=== PATIENT | female | born 1940 | race Caucasian/White ===

== ENCOUNTER 2017-04-07 08:47 | Inpatient (IN) ==
[2017-04-07] MEDS ORDERED: SODIUM CHLORIDE 0.9% 1,000 ML IV STA (10:27)
[2017-04-07] MEDS ORDERED: ONDANSETRON 4 MG/2 ML VIAL IV STA ×2 (10:28→12:01)
[2017-04-07 11:15] LABS: Apearance,Urine CLEAR (Clear); Bilirubin,Urine Negative (Negative); Blood, Urine Negative (Negative); Glucose,Urine (UA) >=500 mg/dL (Negative); Ketones,Urine 80 mg/dL (Negative); Mucus,Urine Occasional /LPF (Occasional); Nitrite,Urine Negative (Negative); Protein,Urine Negative; RBC,Urine 3 /HPF (0-4); Squamous Epithelial Cell,Urine Occasional /HPF (0-10); Urine Color Yellow (Yellow); Urine Specific Gravity 1.015 (1.001-1.035); Urine Urobilinogen < 2.0 EU/DL (0.2-1.0); WBC,Urine 6 /HPF (0-6)
[2017-04-07] MEDS ORDERED: ONDANSETRON ODT 4 MG TABLET PO STA (11:22)
[2017-04-07] MEDS ORDERED: ONDANSETRON ODT 4 MG TABLET PO ONE (11:24)
[2017-04-07 11:26] LABS: Basophils % 0.2 % (0.0-0.8); Eosinophils % 0.1 % (0.00-10.9); Hematocrit 36.4 VOL% (35.7-47.0); Hemoglobin 12.6 GM/DL (12.0-16.0); Immature Granulocytes % 0.4 %; Immature Granulocytes Absolute 0.06 #; Lymphocytes # 1.5 10*3/uL (1.4-4.0); Mean Corpuscular HGB Conc 34.6 GM/DL (32-36); Mean Corpuscular Hemoglobin 32 PG (27-34); Mean Corpuscular Volume 91.7 FL (87-102); Mean Platelet Volume 11.2 FL (9.6-12.0); Monocytes # 0.8 10*3/uL (0.11-0.8); Monocytes % 5.7 % (1.7-12.7); Neutrophils # 12.3 10*3/uL (1.4-7.4); Neutrophils % 83.6 % (38.7-73.9); Platelet Count 217 T/CUMM (130-400); Red Blood Count 3.97 MC/CUMM (3.8-5.5); Red Cell Distribution Width 13.8 % (9.3-17.3); White Blood Count 14.7 T/CUMM (4-12)
[2017-04-07 11:55] LABS: Albumin 3.9 G/DL (3.4-5.0); Bilirubin,Total 0.4 MG/DL (0.2-1.0); Calcium 9.2 MG/DL (8.5-10.1); Osmolality,Calculated 280.7 MOS/KG (273-304); Potassium 3.6 MMOL/L (3.5-5.1); Total Protein 7.5 G/DL (6.4-8.3)
[2017-04-07] MEDS ORDERED: ONDANSETRON 4 MG/2 ML VIAL ONE (12:21)
--- NOTE | 2017-04-07 13:01 | CT Report ---
History: Diffuse abdominal pain, vomiting, leukocytosis Date: 04/07/2017 Study: CT abdomen and pelvis with IV contrast Comparison exam: November 19, 2011 CT abdomen and pelvis Technique: Spiral CT sections were obtained from the lung bases to the pubic symphysis following 100 mL Omnipaque [address] exam was performed using one or more of the following dose reduction techniques: Automated exposure control, adjustment of the mA and/or kV according to patient size, or use of iterative reconstruction technique. CT abdomen: The partially visualized lung bases are clear without confluent infiltrate to suggest pneumonia. There is mild platelike scar or subsegmental atelectasis in the left lower lobe. There is no pleural or pericardial effusion. There is moderate coronary artery calcification, with involvement of the left anterior descending coronary artery. There is mild diffuse fatty infiltration of the liver. There is a 12 mm water density cyst at the inferior margin of the lateral segment of the left lobe, unchanged dating back to 2011. There is abnormal wall thickening and wall edema associated with the gallbladder. There is some increased density in the lumen of the gallbladder suggesting sludge and/or medium density gallstones. There is no abnormal biliary dilatation. The spleen and pancreas are unremarkable. There is a stable left adrenal nodule measuring 14 mm which was present on the 2012 exam. The right adrenal gland is normal. There is bilateral renal excretion without hydronephrosis. There is no enhancing renal mass. There is no aneurysm of the moderately calcified abdominal aorta. There is no evidence of pneumoperitoneum or nicolas bowel obstruction. There is no gross lymphadenopathy by short axis diameter criteria. CT pelvis: There is no pelvic mass or abnormal pelvic fluid collection. There is severe degenerative disc narrowing at L4-L5 with some minimal grade 1 anterolisthesis of L4 with respect to L5 as on the previous study. Impression: Abnormal CT appearance of the gallbladder suggesting potential acute cholecystitis. Consider further evaluation with ultrasound to document the presence of gallstones. No definite acute process otherwise compared to the previous study. PROCEDURE INTERPRETED AT [facility] DEPARTMENT OF RADIOLOGY Final Report Signed by: Dr. Rossy Chung
--- NOTE | 2017-04-07 14:13 | Ultrasound Report ---
History is abdominal pain and leukocytosis nausea vomiting Hepatic size and echotexture is normal except for several small cysts There are several small gallstones with gallbladder sludge present There is gallbladder wall thickening up to at least 6 mm with small amount of pericholecystic fluid. Gallbladder is mildly distended. Common bile duct measures up to 5 mm. No intrahepatic ductal dilatation seen No right renal hydronephrosis seen Most of the pancreas obscured by overlying bowel gas Visualized proximal aorta and IVC are normal in size Impression: 1. Cholelithiasis with gallbladder wall thickening and small amount of pericholecystic fluid. Is there any clinical question of acute cholecystitis? 2. Pancreas is obscured PROCEDURE INTERPRETED AT [facility] DEPARTMENT OF RADIOLOGY Final Report Signed by: Dr. Mamie Cary
--- NOTE | 2017-04-07 14:27 | Emergency Department Note ---
Arrival - Arrival Chief Complaint: Abdominal / Flank Pain Stated Complaint: stomach pain, n/v ED Nursing Triage Note: generalized abd pain that started last night with n/v. denies diarrhea. denies uti s/s, Mode of Arrival: Ambulatory Source: Patient Time Seen by Provider: 04/07/17 10:05 - History of Present Illness HPI Narrative: 76 y/o white female presents to the ER complaining of generalized abdominal pain , nausea, and vomiting. Symptoms started last night. Denies diarrhea or urinary symptoms. Reports blood sugar has been around 132. Last bowel movement was yesterday. Past medical history significant for dyslipidemia, HTN , and NIDDM. Primary Care Physician: Dr. Yoon. Onset (ago): day(s) (1) Severity: mild Quality: cramping Allergies/Adverse Reactions: Allergies Allergy/AdvReac Type Severity Reaction Status Date / Time No Known Allergies Allergy Verified 11/11/16 12:14 Home Medications: Home Medications Medication Instructions Recorded Confirmed Type Celecoxib [Celebrex] 200 mg PO BID 11/11/16 11/11/16 History Ezetimibe [Zetia] 10 mg PO DAILY 11/11/16 11/11/16 History HYDROcodone/ACETAMIN 5-325 [[place] 1 tablet PO Q6H #20 tablet 11/11/16 Rx 5-325] Losartan/Hydrochlorothiazide 1 each PO DAILY 11/11/16 11/11/16 History [Hyzaar 100-12.5 Tablet] Simvastatin [Zocor] 40 mg PO BEDTIME 11/11/16 11/11/16 History Review of System - Review of System 12 point system: reviewed and no additional remarkable complaints except as stated - Review of System Gastrointestinal: Present: abdominal pain (diffuse ), nausea, vomiting Medical,Surgical,& Family Hx - Medical History Cardio: History of: Hypertension Endocrine: History of: Diabetes Mellitus (NIDDM), Dyslipidemia - Social History Smoking Status: Never smoker Exam Vital Signs: Vital Signs Temperature 98.2 F 04/07/17 10:17 Pulse Rate 80 04/07/17 12:45 Respiratory Rate 18 04/07/17 12:45 Blood Pressure 133/68 04/07/17 12:45 O2 Sat by Pulse Oximetry 100 04/07/17 08:50 - General General appearance: alert, in no apparent distress - ENT ENT exam: Present: normal exam, normal oropharynx, mucous membranes moist - Chest Chest inspection: Present: normal inspection - Respiratory Respiratory exam: Present: normal lung sounds bilaterally - Cardiovascular Cardiovascular exam: Present: regular rate, normal rhythm, normal heart sounds - Abdominal Exam Abdominal exam: Present: soft, tenderness (diffuse ), normal bowel sounds - Extremities Exam Extremities exam: Present: normal inspection, full ROM - Back Exam Back exam: Absent: CVA tenderness (R), CVA tenderness (L) - Neurological Exam Neurological exam: Present: alert, oriented X3 - Psychiatric Psychiatric exam: Present: normal affect, normal mood - Skin Skin exam: Present: warm, dry Course - Consultations Consultation #1: Dr. Saeed Time: 14:30 (Will admit to Dr. Saeed ) Results - Labs CBC & BMP: 04/07/17 10:27 04/07/17 10:27 Lab Results: I have reviewed the patients labs - Diagnostic Findings Procedure: CT Abdomen and Pelvis: image reviewed by me, report reviewed by me ( Abnormal CT appearance of the gallbladder suggesting potential acute cholecystitis. Consider Further evaluation with ultrasound to document hte presence of gallstones. ), Ultrasound: image reviewed by me, report reviewed by me (Cholelithiasis with gallbladder wall thickening and small amount of pericholecystic fluid. Is there any clinical question of acute cholecystitis?. Pancreas is obscured. ) Disposition Clinical Impression: Cholecystitis Case discussed with: patient Disposition: Still a Patient
--- NOTE | 2017-04-07 15:23 | EKG Report ---
Stationary ECG Study [facility] Test Date: 04/07/2017 3:21:02 PM Pat Name: CATHLEEN MARIA Department: Room: Gender: F Safety Investigator: SOHEILA : 1940 Requested by: Krys Garcias Order Number: [id number] Reading MD: DEVEN CORTES Intervals Dora Rate: 82 P: 55 WI: 170 QRS: 49 QRSD: 90 T: 52 QT: 409 QTc: 448 Interpretive Statements SINUS RHYTHM Electronically Signed On 04-09-17 17:01:22 CDT by DEVEN CORTES [email or web address]
--- NOTE | 2017-04-07 15:36 | General Surg History&Physical ---
Assessment and Plan (1) Cholecystitis Status: Acute Assessment and plan: Patient with apparent acute cholecystitis. She received perioperative antibiotics and proceed with laparoscopic cholecystectomy today. The indications for the procedure as well as the alternative treatment options were reviewed with patient. The risks reviewed were including but not limited to infection, bleeding, blood vessel injury, nerve injury, adjacent organ injury, necessity to convert to open procedure, need for additional procedures in the future, chronic pain, reactions to medications, heart attack, pneumonia, stroke , and other unforeseeable cardiac, pulmonary and/or neurologic events including the rare event of . Patient and her daughter were present expressed understanding of these risks and agreed to proceed with surgical intervention today with Dr. Keshav Saeed. Current Visit: Yes (2) UTI (urinary tract infection) Status: Acute Assessment and plan: We will treat with oral Bactrim. Follow-up on cultures Current Visit: Yes (3) Diabetes mellitus Status: Acute Assessment and plan: Hold metformin while inpatient. Sliding scale insulin. Current Visit: Yes Qualifiers: Diabetes mellitus type: type 2 Diabetes mellitus complication status: without complication (4) Hypertension Status: Acute Assessment and plan: Continue home meds. Monitor. Current Visit: Yes (5) Dyslipidemia Status: Acute Assessment and plan: Continue home meds. Current Visit: Yes (6) Prophylactic measure Status: Acute Assessment and plan: 1. GI prophylaxis: PPI daily 2. DVT prophylaxis, SCDs and early mobilization. Will need to hold Lovenox initially in the perioperative period for bleeding risk. Current Visit: Yes History of Present Illness Chief complaint: abd pain History of present illness: Ms. Bertrand is a 76 year old female with past medical history of hypertension, diabetes mellitus, and hyper lipidemia presenting to the emergency department with right upper quadrant abdominal pain which began last night at approximately 1030. She describes pain as aching in nature and nonradiating with no specific relieving or exacerbating factors. She reports associated nausea and nonbilious vomiting with food contents without diarrhea, fever, chills, or arthralgias. Last bowel movement was yesterday and was formed without hematochezia or melena. She denies chest pain, palpitations, shortness of breath, wheeze, cough, or orthopnea. She has no cardiac or pulmonary history. Home Medications Medication Instructions Recorded Confirmed Type Celecoxib [Celebrex] 200 mg PO BID 11/11/16 11/11/16 History Ezetimibe [Zetia] 10 mg PO DAILY 11/11/16 11/11/16 History HYDROcodone/ACETAMIN 5-325 [[place] 1 tablet PO Q6H #20 tablet 11/11/16 Rx 5-325] Losartan/Hydrochlorothiazide 1 each PO DAILY 11/11/16 11/11/16 History [Hyzaar 100-12.5 Tablet] Simvastatin [Zocor] 40 mg PO BEDTIME 11/11/16 11/11/16 History Allergies Allergy/AdvReac Type Severity Reaction Status Date / Time No Known Allergies Allergy Verified 11/11/16 12:14 Medical,Surgical,& Family Hx - Medical History Cardio: History of: Hypertension Endocrine: History of: Diabetes Mellitus (NIDDM), Dyslipidemia - Surgical History Abdominal Surgeries: Surgical HX of: Hernia Repair - Family History Family History: Reports;: Family Cancer (daughter - breast) - Social History Smoking Status: Never smoker Frequency of Alcohol Use: None Type of Drug Use: None Marital Status: Functional capacity: independent ambulation Exam - Constitutional Vitals: Period Temp Pulse Resp BP Sys/[place]ada Pulse Ox Last 24 Hr 98.2 F-98.2 F 62-80 18-18 133-153/68-80 100 General appearance: no acute distress - Head Head exam: Present: normal inspection, normocephalic - Eye Eye exam: Absent: conjunctival injection, periorbital swelling, scleral icterus - Neck Neck exam: Present: trachea midline - Respiratory Respiratory exam: Present: clear to auscultation bilaterally - Cardiovascular Cardiovascular exam: Present: RRR - GI/Abdominal GI/Abdominal exam: Present: normal bowel sounds, tenderness (RUQ tenderness; (+ )mruphy), soft. Absent: distended, firm, guarding, rebound - Extremities Exam Extremities exam: Absent: calf tenderness, edema - Neurological Exam Neurological exam: Present: alert, oriented X3 - Skin Skin exam: Present: normal color, warm - Constitutional Constitutional: Present: as per HPI - Cardiovascular Cardiovascular: Present: as per HPI - Respiratory Respiratory: Present: as per HPI - Gastrointestinal Gastrointestinal: Present: as per HPI - Genitourinary Genitourinary: Absent: dysuria, flank pain - Musculoskeletal Musculoskeletal: Present: as per HPI Hematologic/Lymphatic: Absent: easy bleeding, easy bruising Quality Measures - VTE Contraindication to Pharmacological VTE Prophylaxis: High Risk of Bleeding Results - Labs CBC & BMP: 04/07/17 10:27 04/07/17 10:27 Labs: LFTs unremarkable Cardiac Enzymes pending. CXR pending UA results noted - culture pending - EKG EKG results: sinus rhythm - Diagnostic Findings Procedure: CT Abdomen and Pelvis: image reviewed by me, report reviewed by me, Ultrasound: image reviewed by me, report reviewed by me (Gall bladder)
--- NOTE | 2017-04-07 16:04 | XRay Report ---
Exam: XR chest 2V Indication: Preop Comparison study: Prior chest radiograph 11/20/2011 Findings: The heart, mediastinum and bony structures are stable from prior. There is no focal consolidation, pneumothorax or pleural effusion identified. Mild atherosclerotic ossification of the thoracic aorta is noted. Impression: No acute cardiopulmonary process. No significant change from prior. PROCEDURE INTERPRETED AT [facility] DEPARTMENT OF RADIOLOGY Final Report Signed by: Mohsen De
[2017-04-07] MEDS ORDERED: TISSUE ADHESIVE 1 EACH APPLICATOR TOP ONE (16:07)
[2017-04-07] MEDS ORDERED: BUPIVACAINE MPF 0.25% /EPI 30 ML VIAL ONE (16:07)
[2017-04-07 17:35] LABS: Troponin I Only < 0.015 NG/ML (0.00-0.045)
[2017-04-07] MEDS ORDERED: SEVOFLURANE 1 UNIT/15 MINUTE INH ONE (18:39)
[2017-04-07] MEDS ORDERED: LACTATED RINGERS 1,000 ML IV ONE (18:39)
[2017-04-07] MEDS ORDERED: fentaNYL 100 MCG/2 ML VIAL ONE (18:39)
[2017-04-07] MEDS ORDERED: MIDAZOLAM 2 MG/2 ML VIAL ONE (18:39)
--- NOTE | 2017-04-07 18:45 | Operative Note ---
Date of procedure: 04/07/17 Pre-op diagnosis: Acute cholecystitis Post-op diagnosis: other (Also with reducible umbilical hernia) Procedure: Procedure performed: #1 laparoscopic cholecystectomy with intraoperative cholangiogram #2 open repair of reducible umbilical hernia Procedure in detail: After informed consent was obtained, the patient was taken operating suite and laid supine on the operating table. After general anesthesia was induced the abdomen was prepped and draped in usual sterile fashion. After procedural pause local anesthetic infiltrated in the skin and subcutaneous tissue just above the umbilicus. Incision was made and dissection carried down through skin and soft tissue. I encountered what appeared to be a small hernia sac near the umbilicus protruding into the wound. I dissected it away from the umbilicus. It was very small approximately half a centimeter in diameter at the fascia. The sac was removed off the fascial edges and passed off the field. That defect was opened slightly and the abdominal cavity was entered. Finger sweep revealed no adhesions. Almanzar trocar placed under visualization. Pneumoperitoneum achieved. The camera inserted and bowel mesentery inspected found to be free of any violation. Next patient was placed in reverse Trendelenburg position rotated to the left. 2 5 mm trochars placed in the right upper quadrant 11 mm subxiphoid trocar was placed all under visualization. The gallbladder identified. It was acutely edematous, inflamed , and dilated. Cholecystotomy was made and the contents suctioned. The gallbladder was then able to be grasped and retracted superiorly. Infundibulum the gallbladder retracted toward the right hip. Dissection carried out from lateral to medial approach and the triangle of Rafa. The cystic duct and tiny cystic artery were identified and isolated. Using a critical view technique these only 2 structures entering the gallbladder. A clip was placed at the junction of the cystic duct and neck of the gallbladder and partial transection made on cystic duct. Cholangiocatheter inserted and secured in place. Intraoperative cholangiogram performed. The cystic duct common bile duct intra-and extrahepatic ducts all filled with no filling defects identified. Contrast appeared to stop near the ampulla and filled what appeared to be the pancreatic duct retrograde with contrast then spilling into the duodenum through an accessory duct. No obvious stone was seen at the ampulla or any meniscus suggestive of a stone. The cholangiocatheter was removed and the 2 clips were placed on the cystic duct just distal to the partial transection the transection completed. The cystic artery was tiny and divided with Bovie cautery with no bleeding. The gallbladder was then removed from the gallbladder fossa using hook cautery and placed in the Endo Catch sac and removed to the Almanzar trocar site. Pneumoperitoneum reachieved in the right upper quadrant was thoroughly irrigated and suctioned. There is some mild oozing along the gallbladder fossa controlled with electrocautery. Surgicel was placed. Afterward there was excellent hemostasis and the irrigant remained clear. The clips inspected found to be intact no leakage of bilious or sanguinous fluid. The abdomen was desufflated as the trochars were removed. The umbilical hernia fascial defect was closed with 0 Vicryl [id number] interrupted sutures. The umbilical stalk was tacked back down to the fascia using 3-0 Vicryl. The wounds were irrigated and suctioned and the deep dermal layer closed with 3-0 Vicryl. Incision closed with maryam. Sterile dressings applied. Patient was explained taken recovery room in stable condition. All lap and needle counts correct at the end of the case. Anesthesia: DANNA Surgeon / Physician: Keshav Saeed Estimated blood loss: other (Less than 25 cc) Specimens: other (Gallbladder) Condition: stable Disposition: PACU Results - Labs CBC & BMP: 04/07/17 10:27 04/07/17 10:27 Discharge Plan - Discharge Medications No Action Celecoxib [Celebrex] 200 mg PO BID Ezetimibe [Zetia] 10 mg PO DAILY Losartan/Hydrochlorothiazide [Hyzaar 100-12.5 Tablet] 1 each PO DAILY Simvastatin [Zocor] 40 mg PO BEDTIME HYDROcodone/ACETAMIN 5-325 [[place] 5-325] 1 tablet PO Q6H #20 tablet - Follow Up or Referral - Forms/Instructions
--- NOTE | 2017-04-07 18:45 | Anesthesia Post-Op ---
Anesthesia Post OP - Post Ansesthetic Evaluation Patient seen in post op: Yes Resp: within normal limits CV: within normal limits Mental: within normal limits Temp: within normal limits [id number]: within normal limits Nausea and Vomiting: within normal limits Pain: within normal limits
[2017-04-07] MEDS: HYDROmorphone 2 MG/1 ML VIAL IV PRN ×2 (19:00→19:05)
[2017-04-07] MEDS ORDERED: ONDANSETRON 4 MG/2 ML VIAL IV PRN (20:20)
[2017-04-07] MEDS ORDERED: ACETAMINOPHEN 325 MG TABLET PO PRN (20:20)
[2017-04-07] MEDS ORDERED: GLUCAGON 1 MG VIAL IM PRN (20:20)
[2017-04-07] MEDS ORDERED: MORPHINE 2 MG/1 ML SYRINGE IV PRN (20:20)
[2017-04-07] MEDS ORDERED: DEXTROSE 50% 25 GM/50 ML VIAL IV PRN (20:20)
[2017-04-07] MEDS: INSULIN REGULAR 100 UNIT/ML SUBCUT SCH ×2 (20:55→22:26)
[2017-04-07] MEDS: LACTATED RINGERS 1,000 ML IV SCH (20:55)
--- NOTE | 2017-04-07 21:49 | Fluoroscopy Report ---
History is lap cholecystectomy 52 seconds total fluoroscopy time provided the operating room. 327 spot images captured and stored during injection of the cystic duct remnant by the surgeon. There is opacification of a common bile duct and visualized intrahepatic ducts of the upper and normal in size without persistent intraluminal filling defect. No contrast passes directly into the duodenum but instead opacifies branches of pancreatic ducts with a small branch subsequently coursing transversely to the right and draining into the second portion of the duodenum. This appears to drain into the medial aspect of the duodenum and no evidence of annular pancreas is seen on the prior CT. Only partial opacification of the pancreatic duct in the body of the pancreas seen. 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 Mamie Cary
[2017-04-08 06:03] LABS: Basophils % 0.2 % (0.0-0.8); Hemoglobin 10.7 GM/DL (12.0-16.0); Immature Granulocytes % 0.5 %; Immature Granulocytes Absolute 0.06 #; Lymphocytes % 17.2 % (21.3-54.2); Mean Corpuscular HGB Conc 33.4 GM/DL (32-36); Mean Corpuscular Hemoglobin 31 PG (27-34); Mean Corpuscular Volume 93.6 FL (87-102); Mean Platelet Volume 11.3 FL (9.6-12.0); Monocytes # 1.2 10*3/uL (0.11-0.8); Monocytes % 9.7 % (1.7-12.7); Neutrophils # 8.6 10*3/uL (1.4-7.4); Neutrophils % 72.4 % (38.7-73.9); Platelet Count 190 T/CUMM (130-400); Red Blood Count 3.42 MC/CUMM (3.8-5.5); Red Cell Distribution Width 14.6 % (9.3-17.3); White Blood Count 11.9 T/CUMM (4-12)
[2017-04-08 06:32] LABS: Band Neutrophils 2 % (0-10); Lymphocytes 15 % (20-55); Total Cells Counted 100
[2017-04-08 06:33] LABS: Platelet Estimate Normal; Segmented Neutrophils 74 % (50-85)
[2017-04-08 06:35] LABS: Albumin 2.8 G/DL (3.4-5.0); Calcium 8.4 MG/DL (8.5-10.1); Osmolality,Calculated 284.1 MOS/KG (273-304); Potassium 3.1 MMOL/L (3.5-5.1); Total Protein 5.3 G/DL (6.4-8.3)
[2017-04-08] MEDS: LACTATED RINGERS 1,000 ML IV SCH ×3 (06:52→21:19)
[2017-04-08] MEDS: INSULIN REGULAR 100 UNIT/ML SUBCUT SCH ×4 (09:09→21:00)
[2017-04-08] MEDS: PANTOPRAZOLE 40 MG TABLET PO SCH (09:10)
[2017-04-08] MEDS ORDERED: POTASSIUM CHLORIDE 20 MEQ/15 ML UDCUP PER TUBE PRN (10:13)
[2017-04-08] MEDS: SULFAMETHOX/TRIMETHOPRIM 800-160 MG TABLET PO SCH ×2 (10:55→21:14)
--- NOTE | 2017-04-08 11:13 | Event Note ---
Patient is postop day #1 status post laparoscopic cholecystectomy with intraoperative cholangiogram and repair of reducible umbilical hernia. She reports she is feeling well and she is sitting up in a chair and mobilize without difficulty. She tolerated liquids without any nausea and is reporting to good appetite. No chest pain, shortness breath, wheeze or cough overnight. Vital signs stable HEENT head is atraumatic Heart regular rhythm Lungs clear to auscultation bilaterally Abdomen soft and appropriately tender postoperatively. Bowel sounds present. Surgical incisions clean, dry and intact Extremities: Calves soft and nontender without pedal edema noted. SCDs in place. Labs: CBC unremarkable with leukocytosis resolved. CMP with potassium 3.1, creatinine slightly elevated 1.1, AST 270, T ALT 190, and alkaline phosphatase 120 Urine culture: No growth at 24 hours Assessment and plan 1. Postop day #1 status post lap scopic cholecystectomy. Pain is controlled. She is voiding and mobilizing without difficulty. She is tolerating oral intake. We will advance her diet as tolerated. Analgesics and antiemetics as needed. 2. Acute kidney injury: Slight elevation in creatinine. We will continue with IV hydration. Monitor electrolytes, urine output, and avoiding nephrotoxic agents. Repeat labs in the morning. 3. Hypokalemia: potassium replacement protocol. Repeat labs in the morning. 4. Elevated liver enzymes: Monitor and repeat labs in the morning. 5. DVT prophylaxis: SCDs. We will hold chemoprophylaxis until postop day #2. 6. GI prophylaxis: PPI daily
[2017-04-08] MEDS ORDERED: ONDANSETRON 4 MG/2 ML VIAL ONE (17:18)
[2017-04-08] MEDS ORDERED: NEOSTIGMINE 10 MG/10 ML VIAL ONE (17:18)
[2017-04-08] MEDS ORDERED: LIDOCAINE 1% 5 ML VIAL ONE (17:18)
[2017-04-08] MEDS ORDERED: PROPOFOL 200 MG/20 ML VIAL IV ONE (17:18)
[2017-04-08] MEDS ORDERED: ROCURONIUM 100 MG/10 ML VIAL IV ONE (17:18)
[2017-04-08] MEDS ORDERED: GLYCOPYRROLATE 0.4 MG/2 ML VIAL ONE (17:18)
[2017-04-09] MEDS: LACTATED RINGERS 1,000 ML IV SCH (05:25)
[2017-04-09 06:58] LABS: Albumin 2.4 G/DL (3.4-5.0); Calcium 7.6 MG/DL (8.5-10.1); Osmolality,Calculated 274.7 MOS/KG (273-304); Potassium 3.1 MMOL/L (3.5-5.1); Total Protein 5.1 G/DL (6.4-8.3)
[2017-04-09] MEDS: INSULIN REGULAR 100 UNIT/ML SUBCUT SCH ×4 (09:20→22:17)
[2017-04-09] MEDS: LOSARTAN 50 MG TABLET PO SCH (09:28)
[2017-04-09] MEDS: SULFAMETHOX/TRIMETHOPRIM 800-160 MG TABLET PO SCH ×2 (09:28→20:48)
[2017-04-09] MEDS: PANTOPRAZOLE 40 MG TABLET PO SCH (09:28)
[2017-04-09] MEDS: LOSARTAN/HCTZ 50-12.5 MG TABLET PO SCH (09:28)
--- NOTE | 2017-04-09 09:55 | Gastrointestinal Consult Note ---
<Gwen Bedoya - Last Filed: 04/09/17 09:44> Assessment and Plan (1) Elevated LFTs Status: Acute Assessment and plan: 04/09-sudden onset right upper quadrant pain with nausea and vomiting. Findings on admission of cholecystitis with cholelithiasis with normal common bile duct. Postop laparoscopic cholecystectomy 2 days now with elevated LFTs. Normal cholangiogram without filling defects noted. Plan an addendum to followed by Dr. Flanagan. Current Visit: Yes (2) Cholecystitis with cholelithiasis Status: Acute Current Visit: Yes History of Present Illness Chief complaint: Elevated LFT History of present illness: Ms. Bertrand is a 76 year old female who is admitted to the hospital with sudden onset of RUQ abdominal pain. Pt states that she was in her usual state of health two days ago when she had a sudden onset of RUQ pain that was sharp and stabbing at times and aching at others. She states the pain is the most severe she has ever had. She also had some nausea with vomiting without diarrhea or other associated symptoms. Pt states she has had this pain once before years ago but is quickly subsided. She was admitted and found at that time to have acute cholecystitis with findings also of cholelithiasis with CBD on US at 5mm. Pt LFTs on admission were unremarkable. Pt underwent laprascopic cholecystectomy on 04/07 with intraoperative cholangiogram, as well as umbilical hernia repain, without findings of any filling defects. On post op day 1, pt was noted to have an elevation in her LFTs which have remained elevated today. She has no prior history of elevated LFT in the past. SHe has had no pain other than expected postoperative pain at this time. She is tolerating her diet as well. Home Medications Medication Instructions Recorded Confirmed Type Celecoxib [Celebrex] 200 mg PO BID 11/11/16 04/07/17 History Ezetimibe [Zetia] 10 mg PO DAILY 11/11/16 04/07/17 History HYDROcodone/ACETAMIN 5-325 [[place] 1 tablet PO Q6H #20 tablet 11/11/16 04/07/17 Rx 5-325] Losartan/Hydrochlorothiazide 1 each PO DAILY 11/11/16 04/07/17 History [Hyzaar 100-12.5 Tablet] Simvastatin [Zocor] 40 mg PO BEDTIME 11/11/16 04/07/17 History Allergies Allergy/AdvReac Type Severity Reaction Status Date / Time No Known Allergies Allergy Verified 04/07/17 22:53 Medical,Surgical,& Family Hx - Medical History Cardio: History of: Hypertension Endocrine: History of: Diabetes Mellitus (NIDDM), Dyslipidemia - Surgical History Abdominal Surgeries: Surgical HX of: Hernia Repair - Family History Family History: Reports;: Family Cancer (daughter - breast) - Social History Smoking Status: Never smoker Frequency of Alcohol Use: None Type of Drug Use: None 12 point system: reviewed and no additional remarkable complaints except as stated - Constitutional Constitutional: Present: as per HPI - EENT Eyes: Present: as per HPI Ears: Present: as per HPI Nose, mouth and throat: Present: as per HPI - Cardiovascular Cardiovascular: Present: as per HPI - Respiratory Respiratory: Present: as per HPI - Gastrointestinal Gastrointestinal: Present: as per HPI, abdominal pain, nausea, vomiting - Genitourinary Genitourinary: Present: as per HPI - Musculoskeletal Musculoskeletal: Present: as per HPI - Neurological Neurological: Present: as per HPI - Psychiatric Psychiatric: Present: as per HPI - Endocrine Endocrine: Present: as per HPI - Hematologic/Lymphatic Hematologic/Lymphatic: Present: as per HPI Exam - Constitutional Vitals: Period Temp Pulse Resp BP Sys/Mon[place]ada Pulse Ox Last 24 Hr 97.6 F-102.3 F 18-100 18-20 102-136/62-81 91-96 General appearance: normal weight, no acute distress - Head Head exam: Present: normal inspection, normocephalic - Eye Eye exam: Present: other (Lids and conjunctive are unremarkable). Absent: scleral icterus - ENT ENT exam: Present: normal exam, normal oropharynx - Neck Neck exam: Present: normal inspection - Respiratory Respiratory exam: Present: clear to auscultation bilaterally. Absent: rales, rhonchi, wheezes - Cardiovascular Cardiovascular exam: Present: regular rate and rhythm. Absent: diastolic murmur , JVD, systolic murmur - GI/Abdominal GI/Abdominal exam: Present: normal bowel sounds, soft. Absent: ascites, distended, mass, organomegaly, tenderness - Extremities Exam Extremities exam: Present: normal inspection, full ROM - Back Exam Back exam: Present: normal inspection - Neurological Exam Neurological exam: Present: alert, oriented X3 - Psychiatric Psychiatric exam: Present: normal affect, normal mood - Skin Skin exam: Present: normal color, warm, dry Results - Labs CBC & BMP: 04/08/17 05:30 04/09/17 05:49 Lab Results: I have reviewed the past 24 hour labs - Diagnostic Findings Procedure: CT Abdomen and Pelvis: report reviewed by me, Ultrasound: report reviewed by me Quality Measures - VTE Contraindication to Pharmacological VTE Prophylaxis: High Risk of Bleeding Specialty Discharge - Follow Up or Referrals Follow up with: Keshav Saeed MD [Physician] - <Emre Flanagan - Last Filed: 04/09/17 19:45> History of Present Illness History of present illness: Ms. Bertrand is a 76 year old female Exam - Constitutional Vitals: Period Temp Pulse Resp BP Sys/Mon[place]ada Pulse Ox Last 24 Hr 98.0 F-102.2 F 86-100 17-20 104-137/61-81 92-95 Results - Labs CBC & BMP: 04/08/17 05:30 04/09/17 18:53
[2017-04-09] MEDS: POTASSIUM CHLORIDE 20 MEQ TABLET PO PRN ×4 (10:09→16:24)
--- NOTE | 2017-04-09 10:15 | Event Note ---
Patient is postop day #2 status post laparoscopic cholecystectomy. She reports feeling well and tolerating diet without difficulty. She has been afebrile. Voiding mobilized without difficulty. Denies chest pain, palpitations, shortness breath, wheeze or cough. Vital signs are stable Lungs clear to auscultation bilaterally Heart regular rate and rhythm Abdomen soft and appropriately tender for postop status. Surgical dressings are clean, dry and intact. Bowel sounds are present but hypoactive. Extremities no pedal edema appreciated. Calves are soft and nontender Labs: BMP with improved creatinine. Potassium is 3.1; bilirubin 2, AST 107, ALT 160, alk phos 129 Gallbladder pathology pending Assessment and plan 1. Patient is postop day #2 status post lap scopic cholecystectomy for acute cholecystitis. I liver enzymes remain elevated. We will consult gastroenterology for likely ERCP pending their assessment evaluation -we appreciate their input. 2. Hypokalemia: Patient did not receive repletion yesterday we will replete today. Repeat labs in am. Acute kidney injury resolved GI prophylaxis continue PPI daily DVT prophylaxis: Continue SCDs and mobilization. We will hold Lovenox for potential procedure planned
--- NOTE | 2017-04-09 11:19 | Pathology Report from [facility] ---
[facility] [place] : [id number] PATIENT NAME : Cathleen Bertrand ORDERING DR : Keshav Saeed MD CLINICAL HX: Acute choleycstitis POST-OP DX: Same SPECIMEN INFO: #1 Gallbladder #2 Hernia sac GROSS DESCRIPTION: Received in formalin in two parts labeled:#1 CATHLEEN BERTRAND & #1 is an intact gallbladder measuring 7.9 x 4.5 cm. The serosa is fatty delacruz rosales. The gallbladder wall has thickness of up to 0.3 cm. The mucosa is erythematous and focally ulcerated and contains thick hemorrhagic material. The lumen contains brown gold bile admixed with irregular shaped black stones measuring 1.5 x 0.5 cm collectively. Data Security Analyst sections are submitted in cassette #1.#2 CATHLEEN CANDACE & #2 consists of two yellow pink fatty fibrous tissue fragments measuring together 1.8 x 1.5 cm, sectioned and submitted in cassette #2. DIAGNOSIS FOR CATHLEEN BERTRAND: #1 GALLBLADDER, CHOLECYSTECTOMY: Acute and chronic cholecystitis. Cholelithiasis.#2 Unremarkable skin and fibroconnective tissue c/w umbilical hernia sac. COLLECTED DATE: 04/08/2017 [facility] REPORT DATE: 04/09/2017 ELECTRONICALLY SIGNED BY: Timothy Pan M.D. 04/09/2017 - 9:31:14 [facility]ITALBl[facility]
[2017-04-09] MEDS: POTASSIUM CHLORIDE RIDER 10 MEQ in PREMIX 1 EACH IV SCH ×2 (15:23→15:55)
[2017-04-10 05:33] LABS: Basophils # 0.1 10*3/uL (0.0-0.2); Basophils % 0.5 % (0.0-0.8); Eosinophils # 0.1 10*3/uL (0.0-0.87); Eosinophils % 1.3 % (0.00-10.9); Hematocrit 30.6 VOL% (35.7-47.0); Hemoglobin 10.2 GM/DL (12.0-16.0); Immature Granulocytes % 0.7 %; Immature Granulocytes Absolute 0.06 #; Lymphocytes # 1.7 10*3/uL (1.4-4.0); Lymphocytes % 18.7 % (21.3-54.2); Mean Corpuscular HGB Conc 33.3 GM/DL (32-36); Mean Corpuscular Hemoglobin 31 PG (27-34); Mean Corpuscular Volume 94.2 FL (87-102); Mean Platelet Volume 11.4 FL (9.6-12.0); Neutrophils # 6.2 10*3/uL (1.4-7.4); Neutrophils % 67.8 % (38.7-73.9); Platelet Count 176 T/CUMM (130-400); Red Blood Count 3.25 MC/CUMM (3.8-5.5); Red Cell Distribution Width 14.5 % (9.3-17.3); White Blood Count 9.2 T/CUMM (4-12)
[2017-04-10 05:34] LABS: PT Patient Result 10.7 SECS
[2017-04-10] MEDS ORDERED: POTASSIUM CHLORIDE RIDER 10 MEQ in PREMIX 1 EACH IV PRN (06:22)
[2017-04-10] MEDS: POTASSIUM CHLORIDE RIDER 10 MEQ in PREMIX 1 EACH IV SCH ×4 (06:58→11:28)
--- NOTE | 2017-04-10 07:39 | Event Note ---
Afebrile vital signs stable. No significant pain. Has been tolerating a diet. N.p.o. for ERCP today. Abdomen is soft appropriately tender nondistended and incisions look good. Plan: ERCP today. Plan to discharge home when okay with GI.
[2017-04-10] MEDS: INSULIN REGULAR 100 UNIT/ML SUBCUT SCH ×4 (08:51→21:29)
[2017-04-10] MEDS: LOSARTAN/HCTZ 50-12.5 MG TABLET PO SCH (09:02)
[2017-04-10] MEDS: LOSARTAN 50 MG TABLET PO SCH (09:02)
[2017-04-10] MEDS ORDERED: MIDAZOLAM 2 MG/2 ML VIAL ONE (12:37)
[2017-04-10] MEDS ORDERED: fentaNYL 100 MCG/2 ML VIAL ONE (12:37)
[2017-04-10] MEDS ORDERED: GLUCAGON 1 MG VIAL ONE (12:45)
[2017-04-10] MEDS ORDERED: LIDOCAINE 1% 5 ML VIAL ONE (12:45)
[2017-04-10] MEDS ORDERED: PROPOFOL 200 MG/20 ML VIAL IV ONE (12:45)
--- NOTE | 2017-04-10 13:01 | History and Physical Update ---
History and Physical Update - Physical Exam Mental Status: alert and oriented Heart: regular rate and rhythm Lung: clear to auscultation Abdomen: within normal limits Vitals: within normal limits
--- NOTE | 2017-04-10 13:06 | Operative Note ---
Date of procedure: 04/10/17 Pre-op diagnosis: Suspected choledocholithiasis with abnormal liver test Procedure: Endoscopic retrograde cholangiopancreatography with sphincterotomy and balloon stone extraction. 76-year-old female with cholelithiasis intraoperative cholangiogram suggested filling defect of the distal bile duct now for ERCP to further evaluate. Informed symptoms obtained the patient She was sedated with MAC anesthesia per anesthesia protocol. Patient placed in prone position the Olympus duodenal scope inserted oral cavity and advanced without resistance into the esophagus esophageal stomach and gastric mucosa appeared normal. In the duodenum there is a periampullary diverticulum with the ampulla on the outer lip of the diverticulum. We were able to successfully cannulate the common bile duct revealing a normal caliber common bile duct common hepatic duct cystic duct clips appear intact with no evidence of bile duct leak. No strictures or stones were clearly identified. In the distal bile duct the diverticulum creates a significant shelf formation and it was elected to proceed with sphincterotomy of approximately 8 mm with a sphincterotome to allow better drainage from her common bile duct. A balloon cath was advanced konrad hepatis inflated 8 mm port in the duodenum with removal of some biliary sludge. Good drainage was noted post procedure. The procedure terminated placed our procedure well she is discharged recovery in good condition. Postop diagnosis #1 periampullary diverticulum with shelf formation resulting in sludge accumulation now status post successful sphincterotomy. Would observe for complications overnight and plan discharge tomorrow if she does well. Continue to monitor liver test would expect these to normalize over the next few weeks. Anesthesia: MAC Surgeon / Physician: Emre Flanagan Estimated blood loss: none Specimens: none sent Condition: stable Disposition: post procedure unit Results - Labs CBC & BMP: 04/10/17 04:32 04/10/17 04:32 Discharge Plan - Discharge Medications No Action Celecoxib [Celebrex] 200 mg PO BID Ezetimibe [Zetia] 10 mg PO DAILY Losartan/Hydrochlorothiazide [Hyzaar 100-12.5 Tablet] 1 each PO DAILY Simvastatin [Zocor] 40 mg PO BEDTIME HYDROcodone/ACETAMIN 5-325 [[place] 5-325] 1 tablet PO Q6H #20 tablet - Follow Up or Referral Follow Up: Keshav Saeed MD [Physician] - - Forms/Instructions Instructions: Urinary Tract Infection in Women (DC), Laparoscopic Cholecystectomy (DC), Umbilical Hernia (DC)
--- NOTE | 2017-04-10 13:10 | Anesthesia Post-Op ---
Anesthesia Post OP - Post Ansesthetic Evaluation Patient seen in post op: Yes Resp: within normal limits CV: within normal limits Mental: within normal limits Temp: within normal limits [id number]: within normal limits Nausea and Vomiting: within normal limits Pain: within normal limits
[2017-04-10] MEDS: SULFAMETHOX/TRIMETHOPRIM 800-160 MG TABLET PO SCH ×2 (13:51→20:22)
[2017-04-10] MEDS: PANTOPRAZOLE 40 MG TABLET PO SCH (13:51)
--- NOTE | 2017-04-10 15:06 | Fluoroscopy Report ---
[place] ERCP w sphincterotomy Indication: Elevated LFT, gallstones on ultrasound, post cholecystectomy Comparison: None Technique: 5 intraoperative fluoroscopic views of the biliary tree. Total image count 5. Findings: Images demonstrate no significant biliary ductal dilatation. Please see procedural report for details. IMPRESSION: As above. PROCEDURE INTERPRETED AT [facility] DEPARTMENT OF RADIOLOGY Final Report Signed by: Dr Teofilo Batres
[2017-04-11 05:25] LABS: Albumin 2.4 G/DL (3.4-5.0); Osmolality,Calculated 276.4 MOS/KG (273-304); Potassium 3.5 MMOL/L (3.5-5.1); Total Protein 5.2 G/DL (6.4-8.3)
[2017-04-11] MEDS: INSULIN REGULAR 100 UNIT/ML SUBCUT SCH ×2 (08:12→12:07)
[2017-04-11] MEDS: SULFAMETHOX/TRIMETHOPRIM 800-160 MG TABLET PO SCH (08:56)
[2017-04-11] MEDS: POTASSIUM CHLORIDE 20 MEQ TABLET PO PRN (08:56)
[2017-04-11] MEDS: PANTOPRAZOLE 40 MG TABLET PO SCH (08:56)
[2017-04-11] MEDS ORDERED: SODIUM CHLORIDE 0.9% 1,000 ML IV SCH (09:00)
--- NOTE | 2017-04-11 09:20 | Gastrointestinal Progress Note ---
<Gwen Bedoya - Last Filed: 04/11/17 09:18> Assessment and Plan (1) Elevated LFTs Status: Acute Assessment and plan: 04/11-ERCP findings noted. LFTs trending downward near normal range. No complaints. Okay to discharge from GI standpoint once seen by Dr Flanagan. Plan and addendum to follow by Dr Flanagan. 04/09-sudden onset right upper quadrant pain with nausea and vomiting. Findings on admission of cholecystitis with cholelithiasis with normal common bile duct. Postop laparoscopic cholecystectomy 2 days now with elevated LFTs. Normal cholangiogram without filling defects noted. Plan an addendum to followed by Dr. Flanagan. (2) Cholecystitis with cholelithiasis Status: Acute Gastroenterology - PN: Subj Interval history: CC: Abnormal liver enzymes Patient is seen awake and alert sitting up in chair with family at bedside. States she had an uneventful night. She denies any abdominal pain, nausea or vomiting. States she is tolerating her diet well at this time. LFTs are noted to continue to trend downward to near normal range. Abdomen is soft, mild post op tenderness. She is for possible discharge home today. ERCP findings are noted. ROS: Denies SOB or chest pain Exam (Progress Note) - Constitutional Vitals: Period Temp Pulse Resp BP Sys/Moncada Pulse Ox Last 24 Hr 97.3 F-99.3 F 77-95 16-20 109-145/66-86 92-100 General appearance: normal weight, no acute distress - Head Head exam: Present: normal inspection, normocephalic - Eye Eye exam: Present: other (lids and conjunctiva unremarkable). Absent: scleral icterus - ENT ENT exam: Present: normal exam, normal oropharynx - Neck Neck exam: Present: normal inspection - Respiratory Respiratory exam: Present: clear to auscultation bilaterally. Absent: rales, rhonchi, wheezes - Cardiovascular Cardiovascular exam: Present: regular rate and rhythm. Absent: diastolic murmur , JVD, systolic murmur - GI/Abdominal GI/Abdominal exam: Present: normal bowel sounds, tenderness, soft. Absent: ascites, distended, mass, organomegaly - Extremities Exam Extremities exam: Present: normal inspection, full ROM - Back Exam Back exam: Present: normal inspection - Neurological Exam Neurological exam: Present: alert, oriented X3 - Psychiatric Psychiatric exam: Present: normal affect, normal mood - Skin Skin exam: Present: normal color, warm, dry Results - Labs CBC & BMP: 04/10/17 04:32 04/11/17 04:15 Lab Results: I have reviewed the past 24 hour labs Specialty Discharge - Follow Up or Referrals Follow up with: Keshav Saeed MD [Physician] - 04/24/17 1:30 pm (F/u Dr. Saeed partner 2 wk [address] see [address] consuelo HALE on you appointment lab work to be drawn at [facility] on april 24 at 11:00) <Emre Flanagan - Last Filed: 04/14/17 10:39> Results - Labs CBC & BMP: 04/10/17 04:32 04/11/17 04:15
[2017-04-11] MEDS ORDERED: SODIUM CHLORIDE 0.9% 500 ML IV SCH (10:17)
--- NOTE | 2017-04-11 10:21 | Discharge Summary ---
Hospital Course - Hospital Course Hospital Course: Patient is a 76-year-old female who presented to the emergency department with acute cholecystitis and underwent laparoscopic cholecystectomy. Postoperatively , she demonstrate a mild acute kidney injury as well as elevated LFTs and bilirubin. The acute kidney injury responded to IV fluids with normalization of her creatinine without complication. Her bilirubin remained elevated and GI consultation was obtained. ERCP was performed with sphincterotomy and balloon stone extraction after which her bilirubin normalized and liver enzymes decreased to near normal ranges. Again, her creatinine was slightly elevated post procedure. Patient was also initially treated for UTI with evidence on UA , blood cultures with no growth at 48 hours and antibiotics discontinued. She received IV fluids and was discharged home in good condition. Follow with PCP in 1 week for repeat BMP. Follow-up with Dr. Saeed 2 weeks for postoperative check. Incidentally, the patient was noted to have a concerning lesion on her right cheek and recommended to follow-up with dermatology outpatient. Contact information for appointment scheduling was provided. She and her daughter expressed understanding of the importance to do this in a timely fashion. Patient was discharged home in good condition. Diagnosis - Discharge Diagnosis (1) Cholecystitis Status: Resolved (2) UTI (urinary tract infection) Status: Resolved (3) Diabetes mellitus Status: Chronic (4) Hypertension Status: Chronic (5) Dyslipidemia Status: Chronic (6) Acute kidney injury Status: Resolved (7) Skin abnormalities Status: Acute (8) Elevated LFTs Status: Resolved (9) Hypokalemia Status: Resolved Specialty Discharge - Follow Up or Referrals Follow up with: Keshav Saeed MD [Physician] - Discharge Plan - Discharge Data Disposition: Disch To Home/Self Care Condition at Discharge: Stable Discharge Diet: advance to your usual diet Activity: no lifting (> 10 lb) Hygiene: may shower (Keep wounds clean, dry and covered. No soaking or submerging wounds) Driving: other (While taking narcotics) Contact your physician if you experience:: fever over 101, Difficulty voiding, Redness or swelling, Nausea/Vomiting, Shortness of breath, Bleeding, pain uncontrolled by pain medications - Discharge Medications New HYDROcodone/ACETAMIN 7.5-325 [[place] 7.5-325] 1 tablet PO Q4H PRN #20 tablet PRN Reason: Pain Moderate To Severe (4-10) Pantoprazole Tab [Protonix Tab] 40 mg PO DAILY #30 tablet Continue Celecoxib [Celebrex] 200 mg PO BID Ezetimibe [Zetia] 10 mg PO DAILY Simvastatin [Zocor] 40 mg PO BEDTIME Discontinued Losartan/Hydrochlorothiazide [Hyzaar 100-12.5 Tablet] 1 each PO DAILY HYDROcodone/ACETAMIN 5-325 [[place] 5-325] 1 tablet PO Q6H #20 tablet - Follow Up or Referral Follow Up: Keshav Saeed MD [Physician] - (F/u Dr. Saeed partner 2 wk) - Forms/Instructions Instructions: Laparoscopic Cholecystectomy (DC), Umbilical Hernia (DC) Additional Discharge Instructions: - F/u PCP 5-7 days to check BMP and for hospital folllow-up re: hypokalemia, elevated creatinine and restarting blood pressure medication. - Check blood pressure daily. - F/u [facility] for skin lesion on right cheek. . Call 04/14 to schedule next available appointment Exam - Constitutional Vitals: Period Temp Pulse Resp BP Sys/[place]ada Pulse Ox Last 24 Hr 97.3 F-99.3 F 77-95 16-20 109-145/66-86 92-100 Discharge Results Procedures and tests throughout hospitalization: 1. Laparoscopic cholecystectomy 2. Intraoperative cholangiogram 3. Of repair of reducible umbilical hernia 4. ERCP with sphincterotomy and balloon stone extraction 5. Pathology gallbladder: Acute and chronic cholecystitis with cholelithiasis noted. 6. Pathology umbilical hernia sac: Unremarkable skin fibroconnective tissue 7. Urine culture: No growth at 48 hours Labs on day of discharge: Labs from last 24 hours 04/11/17 04/11/17 04/11/17 06:48 04:15 04:15 Sodium 140 Potassium 3.5 Chloride 105 Carbon Dioxide 24 Anion Gap 14.5 BUN 6 L Creatinine 1.30 H GFR Calculation 39 BUN/Creatinine Ratio 4.00 L Glucose 100 POC Glucose 137 H Calculated Osmolality 276.4 Calcium 8.0 L Magnesium 1.8 Total Bilirubin 1.80 AST 29 ALT 87 H Alkaline Phosphatase 176 H Total Protein 5.2 L Albumin 2.4 L Globulin 2.8 Albumin/Globulin Ratio 0.8 L 04/10/17 04/10/17 20:22 15:15 Sodium Potassium Chloride Carbon Dioxide Anion Gap BUN Creatinine GFR Calculation BUN/Creatinine Ratio Glucose POC Glucose 161 H 165 H Calculated Osmolality Calcium Magnesium Total Bilirubin AST ALT Alkaline Phosphatase Total Protein Albumin Globulin Albumin/Globulin Ratio - Imaging and Cardiology Procedure: CT Abdomen and Pelvis: image reviewed by me, report reviewed by me, Ultrasound: image reviewed by me, report reviewed by me (gallbladder) DS: Provider Date of admission: 04/07/17 16:19 Primary care physician: . No PCP Attending physician on admission: Keshav Saeed MD Consults: 04/09/17 08:25 Consult to Physician [CONS] Routine Comment: elevated LFT s/p meli Consulting Provider: Emre Flanagan Consulting Provider Notified: Yes When should Consulting Provider be notified: Now Person Notified: Maggie called Date Notified: 04/09/17 Time Notified: 10:06 Discharging clinician: Laura Green PA-C
[2017-04-11 11:48] VITALS: BP 114/65
[2017-04-11 12:24] LABS: Bilirubin,Total 1.8 MG/DL (0.2-1.0)
== END 2017-04-11 14:10 | disposition home or self-care (01) | DRG 418 ==
LOC: N.ED 08:47 → N.EDINP 16:19 → N.3E 18:40
PROVIDERS: ADMIT Surgery; ATTEND Surgery
PROC: LAPCHOL (2017-04-07 17:18)
PROC: ERCPWSP (ICD-10-PCS; 2017-04-10 09:35)